=== PATIENT | female | born 1935 | race Caucasian/White ===

== ENCOUNTER 2021-08-05 20:43 | Inpatient (IN) ==
[2021-08-05 22:15] LABS: ABS Lymphocytes 0.4 10^3/ul (1.0-4.8); ABS Neutrophils 7.2 10^3/ul (1.5-7.7); Eosinophil % 0.2 %; Hematocrit 36 % (35-47); Hemoglobin 11.6 g/dL (12.0-16.0); Lymphocyte % 5.1 %; Mean Corpuscular HGB Conc 33 g/dL (31-36); Mean Corpuscular Hemoglobin 29 pg (27-31); Mean Corpuscular Volume 89 fL (80-97); Mean Platelet Volume 8.7 fL (7.4-10.4); Platelet Count 251 10^3/uL (150-450); Red Blood Count 3.98 10^6 /uL (3.70-4.87); Red Cell Distribution Width 14 % (10-15); White Blood Count 8.7 10^3/uL (3.5-10.8)
[2021-08-05 22:32] LABS: ALT 16 U/L (7-52); AST 30 U/L (13-39); Albumin 3.1 g/dL (3.2-5.2); Albumin/Globulin Ratio 0.9 (1-3); Alkaline Phosphatase 73 U/L (35-149); Anion Gap 7 mmol/L (2-11); Blood Urea Nitrogen 15 mg/dL (6-24); CO2 Carbon Dioxide 25 mmol/L (22-32); Calcium 8.9 mg/dL (8.6-10.3); Chloride 102 mmol/L (101-111); EGFR African American 153.1 (>60); EGFR Non-African American 126.6 (>60); Globulin 3.5 g/dL (2-4); Glucose 119 mg/dL (70-100); Potassium 4.1 mmol/L (3.5-5.0); Sodium 134 mmol/L (135-145); Total Protein 6.6 g/dL (6.4-8.9)
[2021-08-05 22:34] LABS: INR 1.16 (0.86-1.15)
[2021-08-05 22:38] LABS: Troponin I 1.94 ng/mL (<0.03)
[2021-08-05] MEDS ORDERED: Iodixanol (CONTRAST) 320 MG/ML 100 ML SDV IV ONE (22:50)
[2021-08-06] MEDS ORDERED: Ondansetron 4 mg VIAL 2 MG/ML 2 ml VIAL IV PRN (00:41)
[2021-08-06] MEDS ORDERED: Furosemide 40 mg/4 ml IV VIAL IV ONE (00:47)
[2021-08-06] MEDS ORDERED: Enoxaparin 40 MG/0.4 ML SYR SUBCUT SCH (01:00)
[2021-08-06] MEDS: Enoxaparin 60 MG/0.6 ML SYR SUBCUT SCH ×2 (02:02→16:11)
[2021-08-06 02:37] LABS: Troponin I 1.55 ng/mL (<0.03)
[2021-08-06 05:52] LABS: Troponin I 1.51 ng/mL (<0.03)
[2021-08-06 08:16] LABS: C Reactive Protein 5.99 mg/L (<8.01)
[2021-08-06] MEDS ORDERED: Furosemide 20 mg/2 ml IV VIAL IV ONE (18:17)
[2021-08-07] MEDS: Enoxaparin 60 MG/0.6 ML SYR SUBCUT SCH ×2 (01:01→13:15)
[2021-08-07] MEDS ORDERED: Albuterol 2.5mg/3 ml (0.083%) NEB.SOLN INH PRN (02:14)
[2021-08-07 05:40] LABS: Hematocrit 36 % (35-47); Hemoglobin 11.8 g/dL (12.0-16.0); Mean Corpuscular HGB Conc 33 g/dL (31-36); Mean Corpuscular Hemoglobin 29 pg (27-31); Mean Corpuscular Volume 90 fL (80-97); Mean Platelet Volume 8.8 fL (7.4-10.4); Platelet Count 272 10^3/uL (150-450); Red Cell Distribution Width 14 % (10-15); White Blood Count 12.5 10^3/uL (3.5-10.8)
[2021-08-07 05:45] LABS: ABS Lymphocytes 0.4 10^3/ul (1.0-4.8); ABS Monocytes 0.9 10^3/ul (0-0.8); ABS Neutrophils 11.2 10^3/ul (1.5-7.7); Nucleated Red Blood Cells % 0.1
[2021-08-07 05:59] LABS: ALT 24 U/L (7-52); AST 43 U/L (13-39); Albumin 3.2 g/dL (3.2-5.2); Albumin/Globulin Ratio 0.9 (1-3); Alkaline Phosphatase 84 U/L (35-149); Blood Urea Nitrogen 24 mg/dL (6-24); CO2 Carbon Dioxide 24 mmol/L (22-32); Calcium 9.4 mg/dL (8.6-10.3); Chloride 97 mmol/L (101-111); EGFR African American 59.3 (>60); Globulin 3.5 g/dL (2-4); Glucose 166 mg/dL (70-100); Sodium 130 mmol/L (135-145); Total Protein 6.7 g/dL (6.4-8.9)
[2021-08-07 06:04] LABS: Anion Gap 9 mmol/L (2-11); Potassium 5.4 mmol/L (3.5-5.0)
[2021-08-07 06:06] LABS: Troponin I 1.49 ng/mL (<0.03)
[2021-08-07] MEDS ORDERED: SODIUM ZIRCONIUM CYCLOSILICATE 5 GM PACKET PO SCH (07:00)
[2021-08-07] MEDS: Morphine 2 MG/ML SYRINGE IV ONE (08:00)
[2021-08-07 14:28] LABS: Cholesterol 242 mg/dL; HDL Cholesterol 58.2 mg/dL; LDL Cholesterol 167 mg/dL; Triglycerides 86 mg/dL
[2021-08-07 17:59] LABS: Blood Urea Nitrogen 30 mg/dL (6-24); CO2 Carbon Dioxide 25 mmol/L (22-32); Calcium 8.7 mg/dL (8.6-10.3); Chloride 94 mmol/L (101-111); EGFR African American 42.7 (>60); EGFR Non-African American 35.3 (>60); Glucose 150 mg/dL (70-100); Sodium 127 mmol/L (135-145)
[2021-08-07 18:27] LABS: Anion Gap 8 mmol/L (2-11); Potassium 5.7 mmol/L (3.5-5.0)
[2021-08-07] MEDS ORDERED: SODIUM ZIRCONIUM CYCLOSILICATE 10 GM PACKET PO ONE (18:30)
[2021-08-07] MEDS ORDERED: Sodium Bicarbonate 8.4% SYR 50 ml SYRINGE IV ONE (18:49)
[2021-08-07] MEDS: Sodium Bicarb 8.4% Vial 50 ML 150 MEQ in D5W 1000 ml BAG 850 ML IV SCH (19:50)
[2021-08-07] MEDS ORDERED: Heparin 5000 UNITS/ML 1 mL VIAL IV SCH (20:00)
[2021-08-07] MEDS: Heparin DRIP 25,000 UNITS BAG 25,000 UNITS/500 ML BAG IV SCH (20:21)
[2021-08-07 20:22] LABS: Phosphorus 6.8 mg/dL (2.5-5.0)
[2021-08-07 20:54] LABS: PCO2 Arterial 35 mmHg (35-45); PO2 Arterial 186 mmHg (80-100)
[2021-08-07 20:59] LABS: ABS Lymphocytes 0.3 10^3/ul (1.0-4.8); ABS Neutrophils 10.2 10^3/ul (1.5-7.7); Hematocrit 27 % (35-47); Hemoglobin 8.7 g/dL (12.0-16.0); Lymphocyte % 2.6 %; Mean Corpuscular HGB Conc 33 g/dL (31-36); Mean Corpuscular Hemoglobin 29 pg (27-31); Mean Corpuscular Volume 90 fL (80-97); Mean Platelet Volume 9.8 fL (7.4-10.4); Nucleated Red Blood Cells % 0.1; Platelet Count 228 10^3/uL (150-450); Red Blood Count 2.95 10^6 /uL (3.70-4.87); Red Cell Distribution Width 14 % (10-15); White Blood Count 11.5 10^3/uL (3.5-10.8)
[2021-08-07] MEDS: Polyethylene Glycol 3350 17 GM PACKET PO SCH ×2 (23:30→23:38)
[2021-08-07] MEDS: Senna TAB 8.6 mg TAB PO SCH (23:30)
[2021-08-07 23:54] LABS: EGFR African American 46.5 (>60); EGFR Non-African American 38.4 (>60)
[2021-08-08 00:14] LABS: Calcium 5.8 mg/dL (8.6-10.3)
[2021-08-08] MEDS ORDERED: Enoxaparin 60 MG/0.6 ML SYR SUBCUT SCH (01:00)
[2021-08-08 01:05] LABS: Calcium 8.4 mg/dL (8.6-10.3); EGFR African American 37.2 (>60); EGFR Non-African American 30.8 (>60); Potassium 4.6 mmol/L (3.5-5.0)
[2021-08-08 04:18] LABS: Hematocrit 33 % (35-47); Hemoglobin 10.9 g/dL (12.0-16.0); Mean Corpuscular HGB Conc 33 g/dL (31-36); Mean Corpuscular Hemoglobin 30 pg (27-31); Mean Corpuscular Volume 88 fL (80-97); Mean Platelet Volume 9.7 fL (7.4-10.4); Platelet Count 282 10^3/uL (150-450); Red Blood Count 3.69 10^6 /uL (3.70-4.87); Red Cell Distribution Width 14 % (10-15); White Blood Count 17.2 10^3/uL (3.5-10.8)
[2021-08-08 04:34] LABS: Albumin/Globulin Ratio 0.9 (1-3); Calcium 8.4 mg/dL (8.6-10.3); EGFR African American 37.2 (>60); EGFR Non-African American 30.8 (>60); Globulin 3.2 g/dL (2-4); Magnesium 1.8 mg/dL (1.9-2.7); Total Bilirubin 0.5 mg/dL (0.2-1.0); Total Protein 6.2 g/dL (6.4-8.9)
[2021-08-08 04:35] LABS: Phosphorus 5.8 mg/dL (2.5-5.0); Potassium 5.3 mmol/L (3.5-5.0)
[2021-08-08 05:33] LABS: ABS Lymphocytes 0.4 10^3/ul (1.0-4.8); ABS Monocytes 1.4 10^3/ul (0-0.8); ABS Neutrophils 15.3 10^3/ul (1.5-7.7); Eosinophil % 0.2 %; Lymphocyte % 2.2 %
[2021-08-08] MEDS ORDERED: SODIUM ZIRCONIUM CYCLOSILICATE 10 GM PACKET PO ONE (05:37)
[2021-08-08] MEDS ORDERED: Magnesium Sulfate 2 gm BAG 2 GM/50 ML BAG IVPB ONE (05:37)
[2021-08-08] MEDS: Polyethylene Glycol 3350 17 GM PACKET PO SCH (09:20)
[2021-08-08] MEDS: Carbamide Peroxide 6.5% OTIC 15 ML BTL BOTH EARS SCH ×2 (17:33→22:04)
[2021-08-08 20:13] LABS: EGFR African American 33.6 (>60); EGFR Non-African American 27.8 (>60); Potassium 4.9 mmol/L (3.5-5.0)
[2021-08-08] MEDS: Sodium Bicarb 8.4% Vial 50 ML 150 MEQ in D5W 1000 ml BAG 850 ML IV SCH (21:39)
[2021-08-08] MEDS: Senna TAB 8.6 mg TAB PO SCH (21:51)
[2021-08-09] MEDS: Heparin DRIP 25,000 UNITS BAG 25,000 UNITS/500 ML BAG IV SCH (03:46)
[2021-08-09 06:50] LABS: Hematocrit 30 % (35-47); Hemoglobin 10.1 g/dL (12.0-16.0); Mean Corpuscular HGB Conc 34 g/dL (31-36); Mean Corpuscular Hemoglobin 30 pg (27-31); Mean Corpuscular Volume 88 fL (80-97); Mean Platelet Volume 10.3 fL (7.4-10.4); Platelet Count 241 10^3/uL (150-450); Red Blood Count 3.39 10^6 /uL (3.70-4.87); Red Cell Distribution Width 14 % (10-15); White Blood Count 15.4 10^3/uL (3.5-10.8)
[2021-08-09 07:07] LABS: Calcium 7.9 mg/dL (8.6-10.3); EGFR African American 36.2 (>60); EGFR Non-African American 29.9 (>60); Magnesium 2.3 mg/dL (1.9-2.7); Phosphorus 4.9 mg/dL (2.5-5.0)
[2021-08-09 07:22] LABS: Activated Partial Thrombo Time 76.6 seconds (26.0-38.0); INR 1.2 (0.86-1.15)
[2021-08-09 08:41] LABS: ABS Lymphocytes 0.3 10^3/ul (1.0-4.8); ABS Monocytes 1.6 10^3/ul (0-0.8); ABS Neutrophils 13.4 10^3/ul (1.5-7.7); Eosinophil % 0.1 %; Nucleated Red Blood Cells % 0.1
[2021-08-09] MEDS ORDERED: SODIUM ZIRCONIUM CYCLOSILICATE 5 GM PACKET PO SCH (09:00)
[2021-08-09] MEDS: Polyethylene Glycol 3350 17 GM PACKET PO SCH (09:25)
[2021-08-09 09:46] LABS: Urine Appearance Cloudy; Urine Bilirubin Negative (Negative); Urine Blood 3+ (Negative); Urine Color Yellow; Urine Glucose Negative (Negative); Urine Ketones Negative (Negative); Urine Nitrite Negative (Negative); Urine Protein Negative (Negative); Urine Specific Gravity 1.017 (1.002-1.030); Urine Urobilinogen Negative (Negative)
[2021-08-09 09:50] LABS: Urine Bacteria Absent (Absent); Urine Red Blood Cell 3+(>10/hpf) (Absent); Urine Squamous Epithelial Cell Present (Absent); Urine White Blood Cell 1+(6-10/hpf) (Absent)
[2021-08-09] MEDS: Carbamide Peroxide 6.5% OTIC 15 ML BTL BOTH EARS SCH (10:12)
[2021-08-09] MEDS ORDERED: Morphine 2 MG/ML SYRINGE IV ONE (16:01)
[2021-08-09] MEDS ORDERED: Morphine 2 MG/ML SYRINGE ONE (16:18)
[2021-08-09] MEDS: Morphine 2 MG/ML SYRINGE IV ONE (17:44)
[2021-08-09 20:00] VITALS: BP 95/68
== END 2021-08-09 19:50 | disposition short-term general hospital (02) | DRG 280 ==
LOC: ED 20:43 → MED 08-06 00:41 → MEDTELE 08-07 01:57 → ICU 08-07 06:14
PROVIDERS: ADMIT Hospitalist; ATTEND Hospitalist